=== PATIENT | male | born 1985 | race Hispanic/Latino ===

== ENCOUNTER 2018-02-13 00:07 | Emergency (ER) | payer OTHER ==
[2018-02-13 00:48] VITALS: RESP 16
[2018-02-13] MEDS ORDERED: Tdap Vaccine 0.5 ml Vial (10-64 yrs) IM ONE ×2 (00:51→01:03)
[2018-02-13] MEDS ORDERED: Lidocaine 1% Inj (20ml) INFIL ONE (00:51)
--- NOTE | 2018-02-13 01:09 | C.PDOC ---
History Of Present Illness 33 year old male presents to the ED for evaluation of an injury sustained to his left eyebrow region earlier today. Patient states he was fixing his car when he accidentally struck himself in the head with a tool. He denies LOC, vision change, nausea, vomiting. Time Seen by Provider: 02/13/18 00:41 Chief Complaint (Nursing): Abnormal Skin Integrity History Per: Patient History/Exam Limitations: no limitations Onset/Duration Of Symptoms: Hrs Current Symptoms Are (Timing): Still Present Location Of Injury: Left: Face Additional History Per: Patient Past Medical History Reviewed: Historical Data, Nursing Documentation, Vital Signs Vital Signs: Last Vital Signs Temp 98 F 02/13/18 01:31 Pulse 58 L 02/13/18 01:31 Resp 16 02/13/18 01:31 BP 122/81 02/13/18 01:31 Pulse Ox 57 L 02/13/18 02:14 - Medical History PMH: No Chronic Diseases Surgical History: No Surg Hx Family History: States: Unknown Family Hx - Social History Hx Alcohol Use: No Hx Substance Use: No - Immunization History Hx Tetanus Toxoid Vaccination: No Hx Influenza Vaccination: No Hx Pneumococcal Vaccination: No Review Of Systems Eyes: Negative for: Vision Change Gastrointestinal: Negative for: Nausea, Vomiting Skin: Positive for: Other (injury to left eyebrow ) Neurological: Negative for: Other (LOC ) Physical Exam - Physical Exam Appears: Non-toxic, No Acute Distress Skin: Normal Color, Warm, Dry Head: Normacephalic, Laceration (1cm, fairly deep, below lateral aspect of left eyebrow. no active bleeding ) Eye(s): bilateral: Normal Inspection, PERRL, EOMI Neck: Normal ROM, No Midline Cervical Tenderness, Supple Extremity: Normal ROM Neurological/Psych: Oriented x3, Normal Speech, Normal Cognition Gait: Steady Laceration - Laceration Repair left eyebrow Wound Length (In cm): 1 Description Of Wound: Linear Wound Cleansed With: Betadine Anesthesia: Lidocaine 1% Wound Examination: Irrigated With Saline, No FB With Wound Exploration Wound Closure: Suture (#4) Suture Technique And Material Used: Interrupted, Nylon (6-0ethilon) Wound Complexity: Simple Medical Decision Making Medical Decision Making: Impression: 33 year old male with laceration to left eyebrow Plan: * Tetanus IM * Tylenol PO * Bacitracin TOP * reassess and disposition Progress: Tetanus IM and Tylenol PO given. Bacitracin TOP applied. Disposition Counseled Patient/Family Regarding: Diagnosis - Disposition Disposition: HOME/ ROUTINE Disposition Time: 01:34 Condition: IMPROVED Additional Instructions: Keep wound clean and dry. Suture removal in 7 days. Instructions: Laceration Repair With Stitches (DC) Forms: General Discharge Instructions, [facility] (Greenlandic) - Clinical Impression Clinical Impression: Laceration, eyelid, left - PA / [employer] / Resident Statement MD/DO has reviewed & agrees with the documentation as recorded. - Scribe Statement The provider has reviewed the documentation as recorded by the Scribe (Chen Ford) All medical record entries made by the Scribe were at my direction and personally dictated by me. I have reviewed the chart and agree that the record accurately reflects my personal performance of the history, physical exam, medical decision making, and the department course for this patient. I have also personally directed, reviewed, and agree with the discharge instructions and disposition.
[2018-02-13] MEDS ORDERED: Bacitracin 500 Units/gm Oint Foilpak UD TOP ONE (01:27)
[2018-02-13 01:32] VITALS: BP 122/81; PULSE 58; TEMP 98
[2018-02-13 01:34] VITALS: O2SAT 57
== END 2018-02-13 01:39 | disposition home or self-care (01) ==
LOC: C.ER 00:07
DX: S01.112A Laceration without foreign body of left eyelid and periocular area, initial encounter (principal); W22.8XXA Striking against or struck by other objects, initial encounter; Y92.89 Other specified places as the place of occurrence of the external cause